=== PATIENT | male | born 1965 | race Caucasian/White ===

== ENCOUNTER 2020-07-10 16:48 | Emergency (ER) | payer OTHER, SELFPAY ==
[2020-07-10 17:10] VITALS: BP 150/83; PULSE 70; RESP 14; TEMP 36.7; O2SAT 98; BMI 24.1
--- NOTE | 2020-07-10 17:14 | XR_ITS ---
PROCEDURE: XR HAND LT MIN 3V CLINICAL INDICATION: Cutting trees, branch broke loose and hit fingers Injury with pain COMPARISON: No exams were available for comparison FINDINGS: No fracture or dislocation. No lytic or blastic change. There is normal mineralization. The joint spaces are well-preserved. No significant degenerative/arthritic changes. No erosive changes evident. Other findings:None. IMPRESSION: No acute findings. Dictated by: Vicente Perales MD 07/10/2020 18:20 Vicente Perales MD in [place] 07/10/2020 18:20
--- NOTE | 2020-07-10 17:41 | HMH.EDUTC ---
[facility] [place]ression: Crushing injury of left ring finger, initial encounter, Mallet finger of left hand Hand pain Qualifiers: Laterality: left Qualified Code(s): M79.642 - Pain in left hand Disposition: Home, Self-Care Condition on Discharge: Good Instructions: Mallet Finger, Finger Extensor Tendon Injury, DI for Mallet Finger Additional Instructions: Rest the extremity, Elevate the extremity as tolerated while you are resting. Wear the finger splint until you are evaluated by orthopedics. Take ibuprofen for pain. I sent in a prescription to your pharmacy. Follow up with Dr. Villar (orthopedics). Her office is supposed to call you in the morning. If you haven't heard from them by 10:00 am then call her office. Follow up with your regular doctor. GO TO THE ER FOR ANY WORSENING SYMPTOMS Prescriptions: Ibuprofen [Ibuprofen 600mg Tablet] 600 mg PO Q6HP PRN #30 tab PRN Reason: Mild Pain Transmission Status: Received by [id number] Referrals: Byron Hill MD [Primary Care Provider] - Gina Villar MD [Physician] - Time of Disposition: 18:23 Medical Decision Making - Medical Records Medical records reviewed: No: I reviewed the patient's medical records. - Ravin Inquiry Pt receiving controlled substance: No Vital Signs: 07/10/20 17:10 07/10/20 18:25 Temperature 98.0 F 98.0 F Temperature Source Oral Pulse Rate 70 Pulse Rate [Right Brachial] 70 Respiratory Rate 14 14 Blood Pressure 150/83 H Blood Pressure [Right Arm] 150/83 H Blood Pressure Mean [Right Arm] 105 Blood Pressure Source [Right Arm] Automatic Cuff Blood Pressure Position [Right Arm] Sitting 02 Sat by Pulse Oximetry 98 Oxygen Delivery Method Room Air Orders (Tests/Meds): ED MEDICATIONS Discontinued Medications Generic Name Dose Route Start Last Admin Trade Name Freq PRN Reason Stop Dose Admin Ibuprofen 800 mg 07/10/20 18:17 07/10/20 18:19 Ibuprofen 400 Mg Tablet PO 07/10/20 18:18 800 mg ONCE ONE Administration - Radiology Data #1 Image(s): Hand Image Reviewed: Yes I reviewed the patient's radiology image, Yes I have reviewed radiologist's interpretation Preliminary Findings: No Fracture Seen PROCEDURE: XR HAND LT MIN 3V CLINICAL INDICATION: Cutting trees, branch broke loose and hit fingers Injury with pain COMPARISON: No exams were available for comparison FINDINGS: No fracture or dislocation. No lytic or blastic change. There is normal mineralization. The joint spaces are well-preserved. No significant degenerative/arthritic changes. No erosive changes evident. Other findings:None. IMPRESSION: No acute findings. Dictated by: Vicente Perales MD 07/10/2020 18:20 Vicente Perales MD in [place] 07/10/2020 18:20 Medical Decision Narrative: I spoke to Dr. Villar over the phone regarding his ring finger not straightening. He is to be seen in the ortho office by Dr. Villar. Aluminum splint applied for tonight. [facility] [place] - General Stated complaint: Ao 07/08@1600 injured Lhand finger Time Seen by Provider: 07/10/20 17:41 Mode of Arrival: Ambulatory Source of Information: Patient Limitations: No Limitations Description of Symptoms (Recalled from Triage Doc. by RN): PATIENT STATES TREE LIMB FELL ON LEFT HAND (3 MIDDLE FINGERS) APPROX 1600 TODAY HEENT Symptoms (Recalled from RN notes): No Resp Symptoms (Recalled from RN notes): No Skin Symptoms (Recalled from RN notes): No MS Symptoms (Recalled from RN notes): Yes Functional Status (Recalled from RN notes): WNL - History of Present Illness Provider Complaint: He states that earlier today he was cutting branches off of a tree when one of the branches broke loose and hit him on left hand in the area of the tips of his index, middle, and ring finger. - Related Data Home Medications Medication Instructions Recorded Confirmed cholecalciferol (vitamin D3) 25 1,000 unit
[2020-07-10 18:25] VITALS: BP 150/83; PULSE 70; RESP 14; TEMP 36.7; O2SAT 98
== END 2020-07-10 18:30 | disposition home or self-care (01) ==
PROVIDERS: Emergency Provider Nurse Practitioner Family; PCP Family Medicine
DX: S67.195A Crushing injury of left ring finger, initial encounter (principal); M20.012 Mallet finger of left finger(s); W22.8XXA Striking against or struck by other objects, initial encounter; Y92.89 Other specified places as the place of occurrence of the external cause; K21.9 Gastro-esophageal reflux disease without esophagitis
CPT/HCPCS: 73130; 99201

== ENCOUNTER → 2020-07-13 10:41 | Outpatient (CLI) | payer OTHER, SELFPAY ==
[2020-07-14 10:28] LABS: PSA, Free 0.24 ng/mL; Prostate Specific Ag 0.6 ng/mL (0.0-4.0)
== END ==
PROVIDERS: Visit Provider Urology
DX: R97.20 Elevated prostate specific antigen [PSA] (principal)
CPT/HCPCS: 36415; 84153; 84154

== ENCOUNTER → 2020-07-17 08:06 | Outpatient (CLI) | payer OTHER, SELFPAY ==
[2020-07-17 08:11] LABS: MANUAL DIFFERENTIAL MANUAL DIFFERENTIAL (MANUAL DIFF)
[2020-07-17 08:27] LABS: Basophils % 0.6 % (0.1-2.0); Eosinophils # 0.1 K/mm3 (0.0-0.4); Eosinophils % 1.3 % (0.1-12.0); Hematocrit 51.5 % (42.0-52.0); Hemoglobin 17.1 g/dL (14.1-18.0); Lymphocytes % 31.1 % (10-50); Mean Corpuscular HGB Conc 33.2 g/dL (31.8-35.4); Mean Corpuscular Hemoglobin 28.3 pg (27.0-31.2); Mean Corpuscular Volume 85.1 fl (80-94); Mean Platelet Volume 8.7 fl (7.4-10.4); Monocytes # 0.4 K/mm3 (0.1-1.0); Monocytes % 6.1 % (1.7-9.3); Neutrophils % 60.8 % (37.0-80.0); Platelet Count 193 K/mm3 (142-424); Red Blood Count 6.05 M/mm3 (4.60-6.20); Red Cell Distribution Width 13.4 % (11.5-17.5); White Blood Count 6.5 K/mm3 (4.8-10.8)
[2020-07-17 08:36] LABS: Hemoglobin A1C 5.2 % (4.0-6.0)
[2020-07-17 09:00] LABS: Chloride 102 mmol/L (98-107); Sodium 137 mmol/L (136-145)
[2020-07-17 09:01] LABS: Potassium 4.8 mmoL/L (3.5-5.1)
[2020-07-17 09:03] LABS: Alanine Aminotransferase 21 U/L (12-78); Albumin Level 4.5 g/dl (3.5-5.0); Albumin/Globulin Ratio 1.8 (1.1-1.8); Alkaline Phosphatase 64 U/L (38-126); Anion Gap 8.8 mEq/L (5-15); Aspartate Amino Transferase 27 U/L (17-59); Bilirubin,Total 0.5 mg/dl (0.2-1.3); Blood Urea Nitrogen 15 mg/dl (9-20); Carbon Dioxide 31 mmol/L (22.0-30.0); Estimated Glomerular Filt Rate 78 ml/min (>60); GFR (African American) 95 ML/MIN (>60); Globulin 2.5 g/dL (1.3-3.2)
[2020-07-17 09:04] LABS: Calcium 9.7 mg/dl (8.4-10.2); Chol/HDL Ratio 3.9 (1-3.5); Cholesterol 206 mg/dl (140-200); Glucose 113 mg/dl (74-100); HDL Cholesterol 53 mg/dl (40-60); Triglycerides 238 mg/dl (30-150); VLDL Cholesterol 48 mg/dL (0-40)
[2020-07-17 09:15] LABS: Direct LDL Cholesterol 96.09 mg/dL (100-129)
[2020-07-17 09:35] LABS: Prostate Specific Ag Screen 0.5 ng/ml (0.0-4.0); Thyroid Stimulating Hormone 1.93 uIU/mL (0.465-4.68)
[2020-07-17 09:53] LABS: Vitamin B12 802 pg/mL (239-931)
[2020-07-17 12:25] LABS: Lymphocytes % 32 % (10-50); Monocytes % 7 % (2-9); Neutrophils % 61 % (42-76); Platelet Estimate Normal; RBC Morphology Normal; Total Cells Counted 100
[2020-07-17 14:18] LABS: Creatinine,Urine Random 16 mg/dL (Not Estab.); Microalbumin < 6.000 mg/L (0-16.7)
== END ==
PROVIDERS: Visit Provider Family Medicine
DX: K21.9 Gastro-esophageal reflux disease without esophagitis (principal); Z13.29 Encounter for screening for other suspected endocrine disorder; Z13.89 Encounter for screening for other disorder; Z13.220 Encounter for screening for lipoid disorders; Z13.1 Encounter for screening for diabetes mellitus; Z12.5 Encounter for screening for malignant neoplasm of prostate
CPT/HCPCS: 36415; 80053; 80061; 82043; 82570; 82607; 83036; 84443; 85007; 85014; 85018; 85048; 85049; G0103

== ENCOUNTER → 2020-07-29 10:11 | Outpatient (CLI) | payer OTHER, SELFPAY ==
[2020-07-29 11:26] LABS: Coronavirus 19 IgG Antibody Negative (Negative); Coronavirus 19 IgM Antibody Negative (Negative)
== END ==
PROVIDERS: Visit Provider Urology
DX: Z01.818 Encounter for other preprocedural examination (principal); Z11.52 Encounter for screening for COVID-19; Z30.2 Encounter for sterilization
CPT/HCPCS: 36415; 86328

== ENCOUNTER 2020-07-31 07:53 | Day surgery (SDC) | payer OTHER, SELFPAY ==
[2020-07-25 09:32] VITALS: BMI 24.1
[2020-07-31 08:28] VITALS: BP 110/69; PULSE 69; RESP 18; TEMP 36.5; O2SAT 97
[2020-07-31 11:18] VITALS: BP 94/58; PULSE 63; RESP 18; TEMP 36.5; O2SAT 94
[2020-07-31 11:33] VITALS: BP 99/62; PULSE 59; RESP 18; TEMP 36.5; O2SAT 97
[2020-07-31 11:48] VITALS: BP 105/70; PULSE 67; RESP 18; TEMP 36.5; O2SAT 97
--- NOTE | 2020-07-31 12:03 | P.OP_ITS ---
Date of procedure: 07/31/20 Pre-op Diagnosis:: Desires sterilization Post-op Diagnosis:: Same Procedure performed:: Vasectomy Surgeon:: Jaylan Forde MD [employer] COUNSELOR:: Joselito Palma Anesthesia: MAC, local Estimated blood loss (mL): 2 Clinical Note:: 54-year-old white male seen recently for vasectomy consultation presents for the procedure today. Operative findings:: Patient with normal scrotal and testicular exam. Procedure went well without complication. Operative note:: Patient taken to the operating room after informed consent was obtained. He was placed on the operating table in the supine position Monitored anesthesia care was administered per anesthesia personnel. Scrotal and testicular examination were within normal limits. Preoperative IV antibiotic was administered. Patient was prepped and draped in standard surgical fashion. The left vas was palpated easily and brought cephalad up to the midline raphae. Local anesthetic was placed under the skin and around the vas deferens. Incision was then made in the midline raphae and a tenaculum was used to grasp the vas and bring it through the incision. The basal sheath was then incised and the vas proper was isolated from its surrounding adventitial tissue. 1 clip was placed distally and 2 proximally. A 1 cm segment excised. The ends of the basal lumen were cauterized. Hemostasis achieved of the adjacent soft tissue and the vas was dropped back in the left hemiscrotum. The right vas was then palpated and brought up through the same incision. Identical procedure was performed as on the left side. Hemostasis achieved and a 3-0 chromic was placed in a horizontal mattress fashion in the skin. Compression gauze and jockstrap were applied. Patient tolerated procedure well there are no complications. Minimal blood loss was observed. Condition: stable Disposition: same day Specimens:: Vas segments were not sent to pathology Complications:: None
[2020-07-31 12:10] VITALS: BP 109/74; PULSE 60; RESP 18; TEMP 36.5; O2SAT 97
== END 2020-07-31 12:10 | disposition home or self-care (01) ==
PROVIDERS: PCP Family Medicine; Visit Provider Urology
PROC: (CPT 55250; principal; 2020-07-31 09:30)
DX: Z30.2 Encounter for sterilization (principal); Z88.1 Allergy status to other antibiotic agents; Z79.899 Other long term (current) drug therapy; R97.20 Elevated prostate specific antigen [PSA]
CPT/HCPCS: 55250; 96374

== ENCOUNTER → 2020-10-03 14:59 | Outpatient (CLI) | payer OTHER, SELFPAY ==
[2020-10-05 14:22] LABS: C-Peptide 2.5 ng/mL (1.1-4.4)
[2020-10-06 04:58] LABS: Insulin Level Total 8.1 uIU/mL (2.6-24.9)
[2020-10-07 08:50] LABS: Gastrin 40 pg/mL (0-115)
[2020-10-07 23:32] LABS: Miscellaneous Test PROINSULIN
== END ==
PROVIDERS: Visit Provider Internal Medicine Gastroenterology
DX: E16.2 Hypoglycemia, unspecified (principal)
CPT/HCPCS: 36415; 82941; 83525; 84681

== ENCOUNTER 2020-12-19 18:44 | Emergency (ER) | payer OTHER, SELFPAY ==
[2020-12-19 18:45] VITALS: BP 133/74; PULSE 102; RESP 18; TEMP 37.4; O2SAT 100; BMI 24.4
[2020-12-19 19:21] LABS: Basophils # 0.1 K/mm3 (0-0.2); Basophils % 0.7 % (0.1-2.0); Eosinophils % 0.3 % (0.1-12.0); Hemoglobin 14.8 g/dL (14.1-18.0); Lymphocytes # 1.1 K/mm3 (0.7-4.5); Lymphocytes % 15.3 % (10-50); Mean Corpuscular HGB Conc 33.7 g/dL (31.8-35.4); Mean Corpuscular Hemoglobin 27.7 pg (27.0-31.2); Mean Corpuscular Volume 82.2 fl (80-94); Mean Platelet Volume 8.1 fl (7.4-10.4); Monocytes # 0.5 K/mm3 (0.1-1.0); Monocytes % 6.8 % (1.7-9.3); Neutrophils # 5.6 K/mm3 (1.8-7.8); Neutrophils % 76.9 % (37.0-80.0); Platelet Count 158 K/mm3 (142-424); Red Blood Count 5.35 M/mm3 (4.60-6.20); Red Cell Distribution Width 13.3 % (11.5-17.5); White Blood Count 7.3 K/mm3 (4.8-10.8)
--- NOTE | 2020-12-19 19:21 | HMH.EDGENADL ---
ED Disposition Clinical Impression: Cellulitis Qualifiers: Site of cellulitis: extremity Site of cellulitis of extremity: lower extremity Laterality: right Qualified Code(s): L03.115 - Cellulitis of right lower limb Disposition: Home, Self-Care Condition on Discharge: Good Additional Instructions: Clindamycin as prescribed. See Dr. Hill in the office in 2 days for follow-up. Return to the emergency department if fever greater than 100.5 degrees, worsening redness, pain, or swelling. Prescriptions: clindamycin HCL [Clindamycin HCl] 300 mg PO QID #40 cap Transmission Status: Pending to [facility] Referrals: Byron Hill MD [Primary Care Provider] - - Critical Care Critical Care Time: No Attestation: On 12/19/20, the high probability of a clinically significant, sudden or life threatening deterioration of the following system(s) required my full and direct attention, intervention and personal management. The time I documented below is in addition to time spent performing reported procedures but includes the following listed in this critical care notation. Medical Decision Making - Ravin Inquiry Pt receiving controlled substance: No Vital Signs: 12/19/20 18:45 Temperature 99.3 F Temperature Source Oral Pulse Rate [Left Radial] 102 H Respiratory Rate 18 Blood Pressure [Left Arm] 133/74 Blood Pressure Mean [Left Arm] 93 Blood Pressure Source [Left Arm] Automatic Cuff Blood Pressure Position [Left Arm] Sitting 02 Sat by Pulse Oximetry 100 Oxygen Delivery Method Room Air - Lab Data Lab Results 12/19/20 19:05: WBC 7.3, RBC 5.35, Hgb 14.8, Hct 44.0, MCV 82.2, MCH 27.7, MCHC 33.7, RDW 13.3, Plt Count 158, MPV 8.1, Neut % (Auto) 76.9, Lymph % (Auto) 15.3, Rhea % (Auto) 6.8, Eos % (Auto) 0.3, Baso % (Auto) 0.7, Neut # (Auto) 5.6, Lymph # (Auto) 1.1, Rhea # (Auto) 0.5, Eos # (Auto) 0.0, Baso # (Auto) 0.1 12/19/20 19:05: Sodium 135 L, Potassium 4.0, Chloride 101, Carbon Dioxide 28, Anion Gap 10.0, BUN 15, Creatinine 1.10, Estimated Creat Clear 88, Estimated GFR 70, Est GFR ( Amer) 85, Glucose 92, Calcium 8.9, Total Bilirubin 0.9, AST 45, ALT 34, Alkaline Phosphatase 70, C-Reactive Protein 11.7 H, Total Protein 7.3, Albumin 4.5, Globulin 2.8, Albumin/Globulin Ratio 1.6 12/19/20 19:05: Lactate 1.2 12/19/20 19:05: Procalcitonin 0.211 Result diagrams: 12/19/20 19:05 12/19/20 19:05 Orders (Tests/Meds): ED MEDICATIONS Generic Name Dose Route Start Last Admin Trade Name Freq PRN Reason Stop Dose Admin Vancomycin HCl 1,250 mg/ 250 mls @ 125 mls/hr 12/19/20 20:00 12/19/20 19:47 Sodium Chloride IV 01/02/21 19:59 125 mls/hr Q12H AMP[facility]O Administration Miscellaneous 1 each 12/19/20 19:45 Vancomycin Consult Request * 01/18/21 19:44 CONSULT PHARMACY [facility] ORDERS Category Date Time Status Erythrocyte Sedimentation Rate Stat Lab 12/19/20 19:05 Received Full Resp Panel w/COVID ([facility]) Routine Lab 12/19/20 19:42 Ordered Lyme (B. burgdorferi) PCR Routine Lab 12/19/20 19:39 Ordered Q-Fever Antibodies, IgG Routine Lab 12/19/20 19:40 Ordered Antonio Mtn Spotted Fev, IgG, Qn Routine Lab 12/19/20 19:39 Ordered Antonio Mtn Spotted Fever, IgM Routine Lab 12/19/20 19:39 Ordered Blood Culture Stat Micro 12/19/20 19:05 Received - Physician Consults Physician Consulted: Ami Time: 20:02 Reason -: Pt condition Comment/Response: Discussed clinical findings. Discussed disposition. He prefers patient be discharged and follow-up as an outpatient in 2 days in the office. Discharge on clindamycin. He feels tick bites are unrelated and doxycycline not needed at this time. General Adult HPI - General Chief complaint: Skin/Abscess/Foreign Body Stated complaint: bite by spider R Leg behind knee swoolen Time Seen by Provider: 12/19/20 19:21 Mode of Arrival: Ambulatory Limitations: No Limitations Description of Symptoms (Recalled from ER Triage Doc. by RN): Pt reports a s
[2020-12-19 19:25] LABS: Alanine Aminotransferase 34 U/L (12-78); Albumin Level 4.5 g/dl (3.5-5.0); Albumin/Globulin Ratio 1.6 (1.1-1.8); Alkaline Phosphatase 70 U/L (38-126); Aspartate Amino Transferase 45 U/L (17-59); Bilirubin,Total 0.9 mg/dl (0.2-1.3); Blood Urea Nitrogen 15 mg/dl (9-20); Calcium 8.9 mg/dl (8.4-10.2); Carbon Dioxide 28 mmol/L (22.0-30.0); Chloride 101 mmol/L (98-107); Creatinine Clearance Estimated 88 mL/min (50-200); Estimated Glomerular Filt Rate 70 ml/min (>60); GFR (African American) 85 ML/MIN (>60); Globulin 2.8 g/dL (1.3-3.2); Glucose 92 mg/dl (74-100); Sodium 135 mmol/L (136-145); Total Protein,Serum 7.3 g/dl (6.3-8.2)
[2020-12-19 19:30] LABS: C-Reactive Protein 11.7 mg/L (0-4)
[2020-12-19 19:36] LABS: Lactic Acid 1.2 mmol/L (0.7-2.1)
--- NOTE | 2020-12-19 19:41 | PC.NURSE ---
Spoke with Kalin from [employer] for vanc dosing. He states he will enter orders for 1250mg IV Q12H
[2020-12-19 19:44] LABS: Procalcitonin 0.211 ng/mL (0.0-2.0)
--- NOTE | 2020-12-19 19:44 | PC.NURSE ---
call out to dr evans at this time.
--- NOTE | 2020-12-19 19:48 | PC.NURSE ---
call out to dr. vidal which is [employer] for dr evans.
--- NOTE | 2020-12-19 19:51 | PC.NURSE ---
speaking to dr. vidal at this time.
[2020-12-19 20:24] LABS: Erythrocyte Sedimentation Rate 7 mm/hr (0-20)
[2020-12-19 20:27] VITALS: BP 133/69; PULSE 94; RESP 16; TEMP 38.1; O2SAT 99
[2020-12-19 21:00] VITALS: BP 128/68; PULSE 87; O2SAT 98
[2020-12-19 21:30] VITALS: BP 132/72; PULSE 91; RESP 16; O2SAT 98
[2020-12-22 04:11] LABS: Rocky Mtn Spotted Fever, IgM 0.25 index (0.00-0.89)
[2020-12-22 04:15] LABS: RMSF, IgG, EIA Negative (Negative)
[2020-12-22 12:46] LABS: Q Fever Phase I Negative (Neg:<1:16); Q Fever Phase II Negative (Neg:<1:16)
[2020-12-25 01:07] LABS: Lyme B. burgdorferi PCR Blood Negative (Negative)
== END 2020-12-19 22:01 | disposition home or self-care (01) ==
PROVIDERS: Emergency Provider Emergency Medicine; PCP Family Medicine
DX: S80.261A Insect bite (nonvenomous), right knee, initial encounter (principal); L03.115 Cellulitis of right lower limb; K21.9 Gastro-esophageal reflux disease without esophagitis
CPT/HCPCS: 80053; 83605; 84145; 85025; 85651; 86140; 86609; 86638; 87040; 87476; 96365; 99283; J3370

== ENCOUNTER → 2021-12-10 10:12 | Outpatient (CLI) | payer OTHER, SELFPAY | PROVIDERS: PCP Family Medicine; Visit Provider Nurse Practitioner Family | DX: M79.672 Pain in left foot (principal); B07.0 Plantar wart; B07.9 Viral wart, unspecified; L57.0 Actinic keratosis | CPT/HCPCS: 87070; 87077; 87186; 87205 ==

== ENCOUNTER → 2022-03-19 09:48 | Outpatient (CLI) | payer OTHER, SELFPAY ==
--- NOTE | 2022-03-19 09:52 | ECG_ITS ---
APPROVED REPORT Exam: Resting ECG HR:55 bpm ECG Measurements Heart Rate 55 AXES MD 153 P 86 QRSd 96 QRS 89 QT 403 T 72 QTc 393 Conclusion SINUS BRADYCARDIA WITH OCCASIONAL VENTRICULAR PREMATURE COMPLEXES BORDERLINE ECG UNCONFIRMED REPORT Electronically signed by : Joselito Peralta MD 03/19/2022 21:21:37
[2022-03-19 10:48] LABS: Basophils # 0.2 K/mm3 (0-0.2); Eosinophils # 0.1 K/mm3 (0.0-0.4); Eosinophils % 0.9 % (0.1-12.0); Hematocrit 49.9 % (42.0-52.0); Hemoglobin 15.3 g/dL (14.1-18.0); Lymphocytes # 2.3 K/mm3 (0.7-4.5); Lymphocytes % 27.5 % (10-50); Mean Corpuscular HGB Conc 30.7 g/dL (31.8-35.4); Mean Corpuscular Hemoglobin 28.2 pg (27.0-31.2); Mean Corpuscular Volume 91.9 fl (80-94); Mean Platelet Volume 8.9 fl (7.4-10.4); Monocytes # 0.5 K/mm3 (0.1-1.0); Monocytes % 6.4 % (1.7-9.3); Neutrophils # 5.3 K/mm3 (1.8-7.8); Neutrophils % 63.1 % (37.0-80.0); Platelet Count 221 K/mm3 (142-424); Red Blood Count 5.43 M/mm3 (4.60-6.20); Red Cell Distribution Width 13.6 % (11.5-17.5); White Blood Count 8.3 K/mm3 (4.8-10.8)
[2022-03-19 11:31] LABS: Alanine Aminotransferase 19 U/L (12-78); Albumin Level 4.2 g/dl (3.5-5.0); Albumin/Globulin Ratio 1.8 (1.1-1.8); Alkaline Phosphatase 81 U/L (38-126); Anion Gap 10.4 mEq/L (5-15); Aspartate Amino Transferase 27 U/L (17-59); Bilirubin,Total 0.5 mg/dl (0.2-1.3); Blood Urea Nitrogen 13 mg/dl (9-20); Calcium 9.6 mg/dl (8.4-10.2); Carbon Dioxide 31 mmol/L (22.0-30.0); Chloride 103 mmol/L (98-107); Estimated Glomerular Filt Rate 101 ml/min (>60); GFR (African American) 122 ML/MIN (>60); Globulin 2.4 g/dL (1.3-3.2); Glucose 99 mg/dl (74-100); Potassium 5.4 mmoL/L (3.5-5.1); Sodium 139 mmol/L (136-145); Total Protein,Serum 6.6 g/dl (6.3-8.2)
== END ==
PROVIDERS: PCP Family Medicine; Visit Provider Podiatrist
DX: B07.0 Plantar wart (principal); L98.9 Disorder of the skin and subcutaneous tissue, unspecified; Z01.818 Encounter for other preprocedural examination
CPT/HCPCS: 36415; 80053; 85025; 93005; C9803; U0003; U0005

== ENCOUNTER → 2022-04-01 10:14 | Outpatient (CLI) | payer OTHER, SELFPAY | PROVIDERS: PCP Family Medicine; Visit Provider Podiatrist | DX: Z01.812 Encounter for preprocedural laboratory examination (principal) ==

== ENCOUNTER 2022-04-03 06:29 | Day surgery (SDC) | payer OTHER, SELFPAY ==
[2022-03-29 10:20] VITALS: BMI 23.4
[2022-04-03] VITALS (10 sets, daily range): BP systolic 96–143; BP diastolic 56–75; PULSE 62–74; RESP 13–18; TEMP 36.1–36.6; O2SAT 95–100
--- NOTE | 2022-04-03 07:14 | P.PN_ITS ---
PFSH PFSH Medical History Asthma Hernia Hyperlipidemia Surgical History H/O vasectomy Family History Other Family history of cancer Social History Smoking Status: Never smoker alcohol intake: former counseling provided: none substance use type: denies use current occupational status: other Travel in the last 8 weeks: None household members: spouse housing: house current occupational exposures/hazards: No caffeine: Yes [facility] Anesthesia Checklist Patient Identification Patient Identification: Arm Band and Verbal (Name & ) Structural Data Admitted From: Home Planned Operative Procedure/s: Removal of plantar warts Consent for Planned Operative Procedure(s) Verified: Yes NPO Status Verified Time NPO: 00:00 Additional verifications Anesthesia Reactions: No Hx Blood Transfusions: No Blood Transfusion Reaction: No Airway Assessment C-Spine Mobility Assessed: Yes TMJ Mobility Assessed: Yes Dentition: Good Dentition Neurological Assessment Level of Consciousness: Awake Hx Seizures: No Numbness or tingling in extremities: No Anesthesia Plan Anesthesia Risk discussed: Yes Anesthesia Plan: Verified ASA Class: I Anesthesia Type: MAC
--- NOTE | 2022-04-03 08:27 | SUR.OPER ---
0745- family updated of pt current status at this time via anderson zarate in preop.
--- NOTE | 2022-04-03 08:54 | P.PNANES_ITS ---
[facility] Anesthesia Record Part I Anesthesia Record I Intake, IV Amount: 1,000 Estimated blood loss (mL): 5 Urine output (mL): 0 Blood Pressure: 143/72 SaO2: 95 Pulse Rate: 74 Respiratory Rate: 13 Temperature: 97 F Patient is:: Drowsy and Oral/Nasal airway Stable to PACU at:: 08:52
--- NOTE | 2022-04-03 09:08 | EXP.OP.NOTE ---
Date of procedure: 04/03/22 Pre-op Diagnosis:: Left foot plantar wart Left mosaic wart Left soft tissue skin lesion Post-op Diagnosis:: Same Procedure performed:: Left skin/tumor excision (superficial [id number]) Left mosaic wart x3 excision with chemical Phenol application Left mosaic heel x2 plantar wart excision with secondary skin/wound closure Left skin biopsy Application of skin/wound amniotic graft Surgeon:: Kimber Oliver DPM MANAGER INTEL:: Jeremy Mcclain Anesthesia: GETA and local (0.5% marcaine plain) Estimated blood loss (mL): 20 Clinical Note:: Patient is a 56-year-old male with left plantar wart lesions. He has tried and failed conservative care including modification of shoe gear, modification of activity, debridement, excision, salicylic acid pads, nitrogen cryotherapy. After a long discussion with the patient in regards to the conservative versus surgical treatment for the warts and scarring, the patient has elected to proceed with surgery because they have failed conservative treatment and continue to have pain and worsening symptoms affecting daily activities. The patient has been instructed on the planned procedure, all risk versus benefits of the procedure discussed.? These include but are not limited to: bleeding, infection, nerve and blood vessel damage, need for further surgery, delay in healing of soft tissue, recurrence of wart/lesion, prolonged pain and recovery, CPRS/RSD, DVT and anesthetic complications. No guarantees were given. All questions fully answered. The patient verbalized understanding and agreed to proceed with surgery. Written consent was obtained. Necessary labs reviewed. Operative findings:: 5 separate clusters of mosaic style warts. The left plantar hallux had at least 20 warts. Left side of the first and second metatarsal mosaic wart clusters were noted with at least 10 to 15 warts each. The plantar left heel had 2 mosaic wart clusters that contained at least 15 warts each. All were excisionally debrided sharply full-thickness with a 15 blade forceps and curette. No signs of infection. Post wart excision and debridement, all wounds were full-thickness to subcutaneous tissue, 100% granular bleeding. Post: left hallux was 2 x 3 x 0.1 cm, left subfirst metatarsal was 2 x 1.75 x 0.1 cm, left subsecond metatarsal with 1.5 x 1.25 x 0.1 cm. Post: Left medial plantar heel was 4 x 2 x 0.4 cm and left inferior plantar heel was 2.5 x 1.5 x 0.3 cm. Plantar heel wounds x2 were reapproximated and closed with suture. This case took 30 mins longer than normal due to the extensive mosaic wart cluster pattern, necessitating more extensive debridement and closure. Operative note:: On this date and time, patient was deemed an appropriate surgical candidate. With informed consent signed, patient was taken to operating theater and positioned supine. MAC anesthesia was induced. Marcaine plain infiltrated in regional block fashion. Patient did not tolerate MAC well as he was having discomfort so was converted to general anesthesia. The LEFT lower extremity was prepped and draped in normal sterile fashion. Left foot soft tissue skin lesion excision: Attention directed to the separate third metatarsal where small lesion was noted less than 0.5 x 0.5 cm round. It was sharply excisionally debrided through skin only, no deep pinpoint bleeding or plantar warts noted. Skin was flushed with saline. Left foot plantar wart excision, biopsy: Attention directed to the hallux and subfirst and second metatarsal where 3 distinct clusters of mosaics warts were noted. Each cluster contained at least 10?15 warts. 15 blade and curette used to sharply excisionally debrided through the thick callused skin into subcutaneous tissue full-thickness. All the blood pinpoint bleeding and abnormal warty tissue was removed. The left hallux soft tissue was sent to pathology as a specimen. The tissue was also sent for tissue culture to evaluate for any skin bacteria. The wound was f
--- NOTE | 2022-04-03 09:26 | PC.NURSE ---
0926-detailed report called to ARI Dudley 0908-pt transported to post op via stretcher w/sharri rails up and left in care of ARI Dudley with bed locked in lowest position, vss, pt stable
--- NOTE | 2022-04-04 08:00 | P.PNANES_ITS ---
[facility] Anesthesia Record Part II Anesthesia Record Part II Discharge Time: 09:22 Destination: Surgical Day Care (OP Surgery) PACU nurse assessment reviewed?: Yes Patient Condition:: Good Anesthesia Complications:: None Swallowing reflex intact?: Yes Cyanosis?: No Blood Pressure: 135/75 Pulse Rate: 62 Temperature: 97.2 F Mental Status: Alert & Oriented Pain level:: 0 Nausea and/or vomitting:: None Intake, IV Amount: 0
[2022-04-04 08:01] VITALS: BP 135/75; PULSE 62; TEMP 36.2
== END 2022-04-03 09:46 | disposition home or self-care (01) ==
PROVIDERS: PCP Family Medicine; Visit Provider Podiatrist
PROC: (CPT 17111; principal; 2022-04-03 07:30)
DX: B07.0 Plantar wart (principal); B07.8 Other viral warts
CPT/HCPCS: 17111; 28043; 87070; 87077; 87186; 87205